=== PATIENT | male | born 1995 | race African-American/Black ===

== ENCOUNTER 2017-07-23 22:28 | Emergency (ER) | payer MEDICAID ==
[2017-07-23 22:55] VITALS: BP 120/55
== END 2017-07-24 | disposition left against medical advice (07) ==
LOC: ER 22:28
DX: Z53.21 Procedure and treatment not carried out due to patient leaving prior to being seen by health care provider (principal)

== ENCOUNTER 2018-11-20 20:25 | Inpatient (IN) | payer MEDICAID ==
[2018-11-20] MEDS ORDERED: IPRATROPIUM/ALBUTEROL 0.5-2.5 MG/3 ML AMPUL NEB ONE (20:56)
--- NOTE | 2018-11-20 20:59 | ER Document Report ---
ED Medical Screen (RME) - General Chief Complaint: Low Back Pain Stated Complaint: LOWER BACK PAIN Time Seen by Provider: 11/20/18 20:49 Mode of Arrival: Ambulatory Information source: Patient Notes: This 23-year-old male presents emergency department with complaints of not feeling good for the last couple days. Reports it started with a sore throat. Now reports his chest his abdomen and bilateral flank pain. Denies pain with void. Mother reports she tried to give him a neb treatment but he declined because his chest hurts so much. Denies fever vomiting diarrhea. Respiratory rate even no retractions unlabored. I have greeted and performed a rapid initial assessment of this patient. A comprehensive ED assessment and evaluation of the patient, analysis of test results and completion of the medical decision making process will be conducted by additional ED providers. Dictation of this chart was performed using voice recognition software; therefore, there may be some unintended grammatical errors. TRAVEL OUTSIDE OF THE [place] IN LAST 30 DAYS: No - Related Data Allergies/Adverse Reactions: Fruit Extracts [From Fruit & Vegetable Daily] Allergy (Severe, Verified 10/25/14 11:08) Lutein Extract [From Fruit & Vegetable Daily] Allergy (Severe, Verified 10/25/14 11:08) lycopene [From Fruit & Vegetable Daily] Allergy (Severe, Verified 10/25/14 11:08) Past Medical History - Social History Chew tobacco use (# tins/day): No Frequency of alcohol use: None Drug Abuse: None Pulmonary Medical History: Reports: Hx Asthma Psychiatric Medical History: Reports: Hx Attention Deficit Hyperactivity Disorder - Immunizations Immunizations up to date: Yes Physical Exam - Vital signs Vitals: Temp Pulse Resp BP Pulse Ox 98.3 F 59 L 18 161/90 H 94 11/20/18 20:37 11/20/18 20:37 11/20/18 20:37 11/20/18 20:37 11/20/18 20:37 Course - Vital Signs Vital signs: Temp Pulse Resp BP Pulse Ox 98.3 F 59 L 18 161/90 H 94 11/20/18 20:37 11/20/18 20:37 11/20/18 20:37 11/20/18 20:37 11/20/18 20:37
[2018-11-20 21:26] LABS: ABSOLUTE EOSINOPHILS # (AUTO) 0.1 10^3/uL (0.0-0.6); ABSOLUTE LYMPHOCYTES (AUTO) 1.3 10^3/uL (0.5-4.7); ABSOLUTE MONOCYTES (AUTO) 0.7 10^3/uL (0.1-1.4); ABSOLUTE NEUT (AUTO) 5.6 10^3/uL (1.7-8.2); BASOPHILS % (AUTO) 0.4 % (0-2); EOSINOPHILS % (AUTO) 1.3 % (0-6); HEMATOCRIT 46.1 % (37.9-51.0); HEMOGLOBIN 15.6 g/dL (13.5-17.0); LYMPHOCYTES % (AUTO) 16.9 % (13-45); MEAN CORPUSCULAR HEMOGLOBIN 25.7 pg (27.0-33.4); MEAN CORPUSCULAR HGB CONC 33.8 g/dL (32.0-36.0); MEAN CORPUSCULAR VOLUME 76 fl (80-97); MONOCYTES % (AUTO) 9.1 % (3-13); PLATELET COUNT 198 10^3/uL (150-450); RED BLOOD COUNT 6.07 10^6/uL (4.35-5.55); RED CELL DISTRIBUTION WIDTH 13.1 % (11.5-14.0); SEGMENTED NEUTROPHILS % (AUTO) 72.3 % (42-78); TOTAL CELLS COUNTED % (AUTO) 100 %; WHITE BLOOD COUNT 7.7 10^3/uL (4.0-10.5)
[2018-11-20 21:28] LABS: APPEARANCE,URINE CLEAR; BILIRUBIN,URINE NEGATIVE (NEGATIVE); COLOR,URINE YELLOW; GLUCOSE, URINE NEGATIVE (NEGATIVE); KETONES,URINE 20 mg/dL (NEGATIVE); LEUKOCYTE ESTERASE,URINE NEGATIVE (NEGATIVE); NITRITE,URINE NEGATIVE (NEGATIVE); PROTEIN,URINE 30 mg/dL (NEGATIVE); URINE SPECIFIC GRAVITY 1.009
[2018-11-20 21:38] LABS: ALBUMIN 4.9 g/dL (3.5-5.0); ALKALINE PHOSPHATASE 74 U/L (38-126); ANION GAP 13 (5-19); ASPARTATE AMINO TRANSFERASE 24 U/L (17-59); BILIRUBIN,DIRECT 0.3 mg/dL (0.0-0.4); BILIRUBIN,TOTAL 0.9 mg/dL (0.2-1.3); BLOOD UREA NITROGEN 20 mg/dL (7-20); CALCIUM 9.9 mg/dL (8.4-10.2); CARBON DIOXIDE 28 mmol/L (22-30); CHLORIDE 100 mmol/L (98-107); GLUCOSE 99 mg/dL (75-110); POTASSIUM 4.1 mmol/L (3.6-5.0); TOTAL PROTEIN 8.2 g/dL (6.3-8.2)
--- NOTE | 2018-11-20 22:11 | RADIOLOGY REPORT (SQ) ---
EXAM DESCRIPTION: XR CHEST 2 VIEWS COMPLETED DATE/TME: 11/20/2018 20:56 CLINICAL HISTORY: 23 years, Male, diff breathing, cp, hx asthma COMPARISON: 10/25/2014 chest NUMBER OF VIEWS: 2 TECHNIQUE: 2 view chest LIMITATIONS: None. FINDINGS: Heart size normal. Lungs clear. No pneumothorax IMPRESSION: Negative chest copyright 2010 [employer]- All Rights Reserved
[2018-11-21] MEDS ORDERED: NORMAL SALINE 1000 ML 1,000 ML IV ONE (00:27)
[2018-11-21 03:17] LABS: CHLAM PCR NOT DETECTED (NOT DETECT)
[2018-11-21] MEDS ORDERED: ONDANSETRON HCL INJ/PF 4 MG/2 ML SDV IV ONE (04:13)
--- NOTE | 2018-11-21 04:19 | ER Document Report ---
ED General - General Chief Complaint: Low Back Pain Stated Complaint: LOWER BACK PAIN Time Seen by Provider: 11/20/18 20:49 Primary Care Provider: CLAUDIA ESPINOZA FNP-C [Primary Care Provider] - Follow up as needed Mode of Arrival: Ambulatory Notes: Patient is a 23-year-old male presents to the emergency department for lower back pain and suprapubic pain for the last 3 days. Patient states he has had 2 episodes of vomiting today is denying any blood in his emesis, has had 2 episodes of vomiting yesterday also denying any blood. Patient's denying any diarrhea or fevers. Is denying dysuria but is complaining of urinary frequency. Patient's denying any penile discharge. Patient initially complained of a sore throat in triage but upon my assessment is denying any sore throat. Patient states he did recently start taking amlodipine for blood pressure approximately 2 weeks ago. Past medical history: ADHD, hypertension, asthma Medications: Amlodipine, albuterol Allergies: No known medical allergies TRAVEL OUTSIDE OF THE [place] IN LAST 30 DAYS: No - Related Data Allergies/Adverse Reactions: Fruit Extracts [From Fruit & Vegetable Daily] Allergy (Severe, Verified 10/25/14 11:08) Lutein Extract [From Fruit & Vegetable Daily] Allergy (Severe, Verified 10/25/14 11:08) lycopene [From Fruit & Vegetable Daily] Allergy (Severe, Verified 10/25/14 11:08) Past Medical History - General Information source: Patient - Social History Smoking Status: Never Smoker Chew tobacco use (# tins/day): No Frequency of alcohol use: None Drug Abuse: None Family History: Reviewed & Not Pertinent Patient has suicidal ideation: No Patient has homicidal ideation: No - Past Medical History Cardiac Medical History: Reports: Hx Hypertension Pulmonary Medical History: Reports: Hx Asthma Psychiatric Medical History: Reports: Hx Attention Deficit Hyperactivity Disorder - Immunizations Immunizations up to date: Yes Review of Systems - Review of Systems Constitutional: denies: Fever EENT: No symptoms reported Cardiovascular: No symptoms reported Respiratory: No symptoms reported Gastrointestinal: See HPI Genitourinary: See HPI Male Genitourinary: See HPI Musculoskeletal: See HPI Skin: No symptoms reported Hematologic/Lymphatic: No symptoms reported Neurological/Psychological: No symptoms reported Physical Exam - Vital signs Vitals: Temp Pulse BP Pulse Ox 98.3 F 67 161/90 H 95 11/20/18 20:36 11/20/18 20:36 11/20/18 20:36 11/20/18 20:36 - Notes Notes: GENERAL: Alert, interacts well. No acute distress. HEAD: Normocephalic, atraumatic. EYES: Pupils equal, round, and reactive to light. Extraocular movements intact. ENT: Oral mucosa moist, tongue midline. NECK: Full range of motion. Supple. Trachea midline. LUNGS: Clear to auscultation bilaterally, no wheezes, rales, or rhonchi. No res piratory distress. HEART: Regular rate and rhythm. No murmur ABDOMEN: Soft, right upper quadrant pain noted, suprapubic pain noted. Non- distended. Bowel sounds present in all 4 quadrants. EXTREMITIES: Moves all 4 extremities spontaneously. No edema, normal radial and dorsalis pedis pulses bilaterally. No cyanosis. BACK: no cervical, thoracic, lumbar midline tenderness. No saddle anesthesia, normal distal neurovascular exam. No CVA tenderness noted bilaterally. NEUROLOGICAL: Alert and oriented x3. Normal speech. cranial nerves II through XII grossly intact PSYCH: Normal affect, normal mood. SKIN: Warm, dry, normal turgor. No rashes or lesions noted. Course - Re-evaluation Re-evalutation: Laboratory 11/20/18 11/20/18 11/20/18 20:58 20:58 20:58 WBC 7.7 RBC 6.07 H Hgb 15.6 Hct 46.1 MCV 76 L MCH 25.7 L MCHC 33.8 RDW 13.1 Plt Count 198 Lymph % (Auto) 16.9 [place] % (Auto) 9.1 Eos % (Auto) 1.3 Baso % (Auto) 0.4 Absolute Neuts (auto) 5.6 Absolute Lymphs (auto) 1.3 Absolute Monos (auto) 0.7 Absolute Eos (auto) 0.1 Absolute Basos (auto) 0.0 Seg Neutrophils % 72.3 Sodium 141.2 Potassium 4.1 Chloride 100 Carbon Dioxide 28 Anion Gap 13 BUN 20 Creatinine 2.55 H Est GFR ( Amer) 39 L Est GFR (MDRD) Non-Af 32 L Glucose 99 Calcium 9.9 Total Bilirubin 0.9 Direct Bilirubin 0.3 Neonat Total Bilirubin Not Reportable Neonat Direct Bilirubin Not Reportable Neonat Indirect Bili Not Reportable AST 24 ALT 24 Alkaline Phosphatase 74 Creatine Kinase Total Protein 8.2 Albumin 4.9 Urine Color YELLOW Urine Appearance CLEAR Urine pH 6.0 Ur Specific [place] 1.009 Urine Protein 30 H Urine Glucose (UA) NEGATIVE Urine Ketones 20 H Urine Blood SMALL H Urine Nitrite NEGATIVE Urine Bilirubin NEGATIVE Urine Urobilinogen 2.0 H Ur Leukocyte Esterase NEGATIVE Urine WBC (Auto) 1 Urine RBC (Auto) 0 Squamous Epi Cells Auto <1 Urine Mucus (Auto) RARE Urine Ascorbic Acid NEGATIVE Chlamydia DNA (PCR) N.gonorrhoeae DNA (PCR) Group A Strep Rapid 11/20/18 11/21/18 11/21/18 20:58 00:00 01:39 WBC RBC Hgb Hct MCV MCH MCHC RDW Plt Count Lymph % (Auto) [place] % (Auto) Eos % (Auto) Baso % (Auto) Absolute Neuts (auto) Absolute Lymphs (auto) Absolute Monos (auto) Absolute Eos (auto) Absolute Basos (auto) Seg Neutrophils % Sodium Potassium Chloride Carbon Dioxide Anion Gap BUN Creatinine Est GFR ( Amer) Est GFR (MDRD) Non-Af Glucose Calcium Total Bilirubin Direct Bilirubin Neonat Total Bilirubin Neonat Direct Bilirubin Neonat Indirect Bili AST ALT Alkaline Phosphatase Creatine Kinase 94 Total Protein Albumin Urine Color Urine Appearance Urine pH Ur Specific [place] Urine Protein Urine Glucose (UA) Urine Ketones Urine Blood Urine Nitrite Urine Bilirubin Urine Urobilinogen Ur Leukocyte Esterase Urine WBC (Auto) Urine RBC (Auto) Squamous Epi Cells Auto Urine Mucus (Auto) Urine Ascorbic Acid Chlamydia DNA (PCR) NOT DETECTED N.gonorrhoeae DNA (PCR) NOT DETECTED Group A Strep Rapid NEGATIVE In reviewing this case with my attending Dr. Alonzo, he is suggesting transfer of the pt. in order to have nephrology consult. 11/21/18 04:14 I have paged [facility] for attempted transfer due to [facility] not having nephrology on-call. Spoke with Dr. Modi at [facility] who is requesting that I speak with nephrology secondary spanish teacher prior to possible transfer. Transfer center stated they will page nephrology. I spoke with Dr. Mcallister, nephrology at [facility] who states this should be a medical admit and thinks I should try [facility] for admission. 11/21/18 04:43 I have spoken with Dr. Gordon, hospitalist at [facility]. He is requesting a CT abdomen pelvis without contrast. States to call him back with results prior to potential admission. 11/21/18 07:52 I have discussed this case with Casper Hart PA-c who will admit to a medical bed for care of pts elevated creatinine. - Vital Signs Vital signs: Temp Pulse Resp BP Pulse Ox 98.3 F 61 18 140/72 H 98 11/21/18 06:50 11/21/18 06:50 11/21/18 06:50 11/21/18 06:50 11/21/18 06:50 - Laboratory Result Diagrams: 11/20/18 20:58 11/20/18 20:58 Laboratory results interpreted by me: 11/20/18 11/20/18 11/20/18 20:58 20:58 20:58 RBC 6.07 H MCV 76 L MCH 25.7 L Creatinine 2.55 H Est GFR ( Amer) 39 L Est GFR (MDRD) Non-Af 32 L Urine Protein 30 H Urine Ketones 20 H Urine Blood SMALL H Urine Urobilinogen 2.0 H Discharge - Discharge Clinical Impression: Elevated serum creatinine, Suprapubic pain Vomiting Qualifiers: Vomiting type: unspecified Vomiting Intractability: non-intractable Nausea presence: with nausea Qualified Code(s): R11.2 - Nausea with vomiting, unspecified Lower back pain Qualifiers: Chronicity: acute Back pain laterality: bilateral Sciatica presence: without sc iatica Qualified Code(s): M54.5 - Low back pain Condition: Stable Disposition: ADMITTED INPATIENT Admitting Provider: Casper Hart PA-C Unit Admitted: Medical Floor Referrals: CLAUDIA ESPINOZA FNP-C [Primary Care Provider] - Follow up as needed
--- NOTE | 2018-11-21 04:48 | RADIOLOGY REPORT (SQ) ---
EXAM DESCRIPTION: [facility]: US ABDOMEN LIMITED CLINICAL HISTORY: 23 years Male; RUQ pain TECHNIQUE: Right upper quadrant ultrasound was performed. COMPARISON: None. FINDINGS: Pancreas: Visualized portions are unremarkable. Liver: 13.9 cm long Portal venous flow is hepatopedal, normal. Gallbladder: normal with no gallstones or sonographic evidence for acute cholecystitis. No pericholecystic fluid. No sonographic Pink's sign. Common bile duct: 6 mm. Right kidney: 11.4 x 6.8 x 6.3 cm, slightly echogenic parenchyma. No shadowing calculi. No hydronephrosis. IMPRESSION: 1. Bile duct is at the upper limits of normal in size. However, the gallbladder is normal. 2. Slightly echogenic right renal parenchyma. This is a nonspecific finding that can be seen with medical renal disease. No hydronephrosis.
--- NOTE | 2018-11-21 06:14 | RADIOLOGY REPORT (SQ) ---
CLINICAL HISTORY: lower abd pain COMPARISON: None. TECHNIQUE: CT ABDOMEN PELVIS WITHOUT IV CONTRAST on 11/21/2018 4:42 AM CDT This exam was performed according to our departmental dose-optimization program, which includes automated exposure control, adjustment of the mA and/or kV according to patient size and/or use of iterative reconstruction technique. FINDINGS: Lower lungs are clear. Abdomen: The liver is normal in appearance. There is no biliary dilatation. Gallbladder is normal in appearance. The pancreas and spleen are normal in appearance. The adrenal glands and kidneys are unremarkable. Abdominal aorta is normal in course and caliber without aneurysm. There is no free air. There is no retroperitoneal adenopathy. Pelvis: There is no bowel obstruction. Urinary bladder is unremarkable. There is no free fluid. Appendix is normal. Skeleton: There are no acute osseous findings. No suspicious bony lesions. IMPRESSION: No acute inflammatory process. No renal or ureteral calculi.
--- NOTE | 2018-11-21 06:16 | RADIOLOGY REPORT (SQ) ---
EXAM: US RENAL CLINICAL DATA: 23-year-old male with lower abdominal pain TECHNICAL DATA: Grayscale and Doppler ultrasound imaging of the kidneys and bladder was performed on 11/21/2018 at 4:33 AM. Comparison: Prior abdominal ultrasound performed on 11/21/2018 at 2:55 AM. FINDINGS: The right kidney measures 11.4 x 6.3 x 6.8 cm. The renal cortex is normal. There is no evidence of renal mass, calculi or perinephric fluid collection. There is no pelvocaliectasis. The left kidney measures 11.3 x 6.2 x 7.4 cm. The renal cortex is normal. There is no evidence of renal mass, calculi or perinephric fluid collection. There is no pelvocaliectasis. The bladder is well distended and smooth in contour. The prevoid bladder volume measures 206 mL. Bilateral ureteral jets are identified. IMPRESSION: Grossly normal sonographic evaluation of the kidneys and bladder.
[2018-11-21] MEDS ORDERED: ONDANSETRON 4 MG TAB.RAPDIS PO PRN (08:49)
[2018-11-21] MEDS ORDERED: ACETAMINOPHEN 325 MG TABLET PO PRN (08:49)
[2018-11-21] MEDS ORDERED: ONDANSETRON HCL INJ/PF 4 MG/2 ML SDV IV PRN (08:49)
[2018-11-21] MEDS ORDERED: KETOROLAC TROMETHAMINE INJ/PF 30 MG/1 ML SDV IV PRN (09:02)
--- NOTE | 2018-11-21 09:18 | PDOC H&P ---
History of Present Illness Admission Date/PCP: 11/21/18 08:02 TARUN BARR History of Present Illness: DONA BULL is a 23 year old black male who comes in with a 5-day history of lower abdominal pain and flank pain. Patient states on Thursday he started having some pain just below his umbilicus and in both of his sides or flanks. Patient states he took some Benadryl and clonidine to see if it would help. I asked him why he had clonidine and he said he had been prescribed it in the past for sleep.. I wonder if he means Klonopin. At any rate it did not seem to get any better he says that he has more abdominal pain when his bladder fills up or when he needs to void. No actual dysuria with voiding and he denies fever chills or sweats although he says he has had a cold recently. States that he is vomited once yesterday and vomited once a day before. Patient denies diarrhea. Patient also states that 2 weeks ago he went to his primary care provider for his prescription for Adderall and at that time she noticed his blood pressure was elevated he says that she did some blood work and started him on a blood pressure medicine Norvasc.. Patient states he is never been told he had hypertension in the past and never been on blood pressure medicine before.. P atient also denies any other comorbidities such as diabetes or heart disease or renal disease or HIV. Only other problem is ADD. The emergency room patient has had several studies and so far the only thing that has shown up abnormal is a creatinine of 2.55 with a normal BUN of 20 GFR of 39. This would calculate to a creatinine clearance of approximately 56. Patient will be admitted to the hospital for further work-up and possible nephrology consult. The last creatinine that I can find in the records is 2014 which was 1.02, certainly however the blood work from 2 weeks ago would be helpful Past Medical History Cardiac Medical History: Reports: Hypertension Pulmonary Medical History: Reports: Asthma Psychiatric Medical History: Reports: Attention Deficit Hyperactivity Disorder Social History Smoking Status: Never Smoker - Advance Directive Resuscitation Status: Full Code Family History Family History: Reviewed & Not Pertinent Parental Family History Reviewed: No Children Family History Reviewed: No Sibling(s) Family History Reviewed.: No Medication/Allergy Home Medications: Amlodipine Besylate [Norvasc 5 mg Tablet] 5 mg PO DAILY 11/21/18 Atomoxetine HCl 80 mg PO DAILY 11/21/18 Clonidine HCl [Catapres 0.1 mg Tablet] 0.1 mg PO QHS 11/21/18 Allergies/Adverse Reactions: Fruit Extracts [From Fruit & Vegetable Daily] Allergy (Severe, Verified 10/25/14 11:08) Lutein Extract [From Fruit & Vegetable Daily] Allergy (Severe, Verified 10/25/14 11:08) lycopene [From Fruit & Vegetable Daily] Allergy (Severe, Verified 10/25/14 11:08) Review of Systems Constitutional: ABSENT: chills, fever(s), headache(s), weight gain, weight loss Cardiovascular: ABSENT: chest pain, dyspnea on exertion, edema, orthropnea, palpitations Respiratory: ABSENT: cough, hemoptysis Gastrointestinal: PRESENT: nausea, vomiting Neurological: ABSENT: abnormal gait, abnormal speech, confusion, dizziness, focal weakness, syncope Psychiatric: ABSENT: anxiety, depression, homidical ideation, suicidal ideation Physical Exam Vital Signs: Temp Pulse Resp BP Pulse Ox 98.3 F 63 16 140/73 H 99 11/21/18 06:50 11/21/18 08:45 11/21/18 08:45 11/21/18 08:45 11/21/18 08:45 Intake & Output 11/20/18 11/21/18 11/22/18 06:59 06:59 06:59 Intake Total 1000 Balance 1000 Weight 86.8 kg General appearance: PRESENT: no acute distress, well-developed, well-nourished Respiratory exam: PRESENT: clear to auscultation parag. ABSENT: rales, rhonchi, wheezes Cardiovascular exam: PRESENT: RRR. ABSENT: diastolic murmur, rubs, systolic murmur GI/Abdominal exam: PRESENT: soft, tenderness - Generalized however patient reports more more pain with suprapubic palpation Neurological exam: PRESENT: alert, awake, oriented to person, oriented to place, oriented to time, oriented to situation, CN II-XII grossly intact. ABSENT: motor sensory deficit Psychiatric exam: PRESENT: flat affect Results Laboratory Results: 11/20/18 20:58 11/20/18 20:58 11/20/18 11/20/18 11/20/18 20:58 20:58 20:58 WBC 7.7 RBC 6.07 H Hgb 15.6 Hct 46.1 MCV 76 L MCH 25.7 L MCHC 33.8 RDW 13.1 Plt Count 198 Seg Neutrophils % 72.3 Sodium 141.2 Potassium 4.1 Chloride 100 Carbon Dioxide 28 Anion Gap 13 BUN 20 Creatinine 2.55 H Est GFR ( Amer) 39 L Glucose 99 Calcium 9.9 Total Bilirubin 0.9 AST 24 Alkaline Phosphatase 74 Total Protein 8.2 Albumin 4.9 Urine Color YELLOW Urine Appearance CLEAR Urine pH 6.0 Ur Specific [place] 1.009 Urine Protein 30 H Urine Glucose (UA) NEGATIVE Urine Ketones 20 H Urine Blood SMALL H Urine Nitrite NEGATIVE Ur Leukocyte Esterase NEGATIVE Urine WBC (Auto) 1 Urine RBC (Auto) 0 11/21/18 00:00 Creatine Kinase 94 Impressions: Chest X-Ray 11/20/18 20:56 IMPRESSION: Negative chest copyright 2011 [employer]- All Rights Reserved Abdomen Ultrasound 11/21/18 01:33 IMPRESSION: 1. Bile duct is at the upper limits of normal in size. However, the gallbladder is normal. 2. Slightly echogenic right renal parenchyma. This is a nonspecific finding that can be seen with medical renal disease. No hydronephrosis. Renal Ultrasound 11/21/18 04:08 IMPRESSION: Grossly normal sonographic evaluation of the kidneys and bladder. Abdomen/Pelvis CT 11/21/18 04:42 IMPRESSION: No acute inflammatory process. No renal or ureteral calculi. Assessment and Plan - Diagnosis (1) Hypertension Is this a current diagnosis for this admission?: Yes Plan: She will be treated with his normal Norvasc which was started 2 weeks ago, I believe 5 mg a day (2) ADD (attention deficit disorder) Is this a current diagnosis for this admission?: Yes Plan: Patient is on Atomoxetine 2 mg daily for his ADD (3) Elevated serum creatinine Is this a current diagnosis for this admission?: Yes Plan: Patient will be hydrated today possibly consult nephrology tomorrow patient had 1 L of fluid in the ER (4) Lower back pain Qualifiers: Chronicity: acute Back pain laterality: bilateral Sciatica presence: without sciatica Qualified Code(s): M54.5 - Low back pain Is this a current diagnosis for this admission?: Yes Plan: Patient is tender to palpate over both flanks but not over the midline or the spine (5) Suprapubic pain Is this a current diagnosis for this admission?: Yes Plan: We will recheck labs to keep patient on a full liquid diet - Time Time Spent with patient: 35 or more minutes
[2018-11-21] MEDS: OXYCODONE-ACETAMINOPHEN 5-325 MG TABLET PO PRN ×2 (10:13→19:50)
[2018-11-21] MEDS: NORMAL SALINE 1000 ML 1,000 ML IV PRN ×2 (10:14→15:53)
[2018-11-21] MEDS: FAMOTIDINE 20 MG TABLET PO SCH ×2 (10:14→21:16)
[2018-11-21] MEDS: DOCUSATE SODIUM 100 MG CAPSULE PO SCH (10:14)
[2018-11-21] MEDS: HEPARIN SOD (PORCINE) 5,000 UNIT/ML 1 ML VIAL SUBCUT SCH ×2 (13:27→21:14)
[2018-11-22] MEDS: NORMAL SALINE 1000 ML 1,000 ML IV PRN ×3 (00:01→19:58)
[2018-11-22 04:46] LABS: ABSOLUTE EOSINOPHILS # (AUTO) 0.1 10^3/uL (0.0-0.6); ABSOLUTE LYMPHOCYTES (AUTO) 1.4 10^3/uL (0.5-4.7); ABSOLUTE MONOCYTES (AUTO) 0.7 10^3/uL (0.1-1.4); ABSOLUTE NEUT (AUTO) 4.6 10^3/uL (1.7-8.2); BASOPHILS % (AUTO) 0.4 % (0-2); EOSINOPHILS % (AUTO) 2.2 % (0-6); HEMATOCRIT 43.8 % (37.9-51.0); MEAN CORPUSCULAR HEMOGLOBIN 25.9 pg (27.0-33.4); MEAN CORPUSCULAR HGB CONC 34.3 g/dL (32.0-36.0); MEAN CORPUSCULAR VOLUME 76 fl (80-97); MONOCYTES % (AUTO) 10.5 % (3-13); PLATELET COUNT 180 10^3/uL (150-450); RED BLOOD COUNT 5.81 10^6/uL (4.35-5.55); SEGMENTED NEUTROPHILS % (AUTO) 66.9 % (42-78); TOTAL CELLS COUNTED % (AUTO) 100 %; WHITE BLOOD COUNT 6.9 10^3/uL (4.0-10.5)
[2018-11-22 05:08] LABS: ALBUMIN 3.9 g/dL (3.5-5.0); ALKALINE PHOSPHATASE 61 U/L (38-126); ANION GAP 10 (5-19); ASPARTATE AMINO TRANSFERASE 18 U/L (17-59); BILIRUBIN,DIRECT 0.2 mg/dL (0.0-0.4); BILIRUBIN,TOTAL 0.8 mg/dL (0.2-1.3); BLOOD UREA NITROGEN 14 mg/dL (7-20); CALCIUM 9.1 mg/dL (8.4-10.2); CARBON DIOXIDE 29 mmol/L (22-30); CHLORIDE 106 mmol/L (98-107); GLUCOSE 95 mg/dL (75-110); PHOSPHORUS 4.2 mg/dL (2.5-4.5); POTASSIUM 4.4 mmol/L (3.6-5.0); TOTAL PROTEIN 6.9 g/dL (6.3-8.2)
[2018-11-22] MEDS: HEPARIN SOD (PORCINE) 5,000 UNIT/ML 1 ML VIAL SUBCUT SCH ×3 (05:22→21:03)
[2018-11-22] MEDS ORDERED: FLUTICASONE NASAL SPRAY 50 MCG/SPRY 120 SPRAY/16 GM NASL PRN (07:39)
[2018-11-22] MEDS: FAMOTIDINE 20 MG TABLET PO SCH ×2 (11:00→21:21)
[2018-11-22] MEDS: DOCUSATE SODIUM 100 MG CAPSULE PO SCH (11:00)
--- NOTE | 2018-11-22 15:21 | PDOC PROGRESS REPORT ---
Subjective Progress Note for:: 11/22/18 Subjective:: She was admitted to the hospital on 922 with a 5-day history of abdominal pain and flank pain. Emerged from provider was concerned that his BUN was 20 and his creatinine was 2.55. ER provider was concerned that this may be the cause of his pain. Reason For Visit: ABDOMINAL PAIN, LOW BACK PAIN, DISEASE, Physical Exam Vital Signs: Temp Pulse Resp BP Pulse Ox 98.3 F 52 L 16 142/85 H 98 11/22/18 07:59 11/22/18 07:59 11/22/18 07:59 11/22/18 07:59 11/22/18 07:59 Intake & Output 11/21/18 11/22/18 11/23/18 06:59 06:59 06:59 Intake Total 1000 4338 240 Output Total 260 1940 Balance 1000 4078 -1700 Weight 86.8 kg 86.8 kg General appearance: PRESENT: no acute distress Respiratory exam: PRESENT: clear to auscultation parag. ABSENT: rales, rhonchi, wheezes Cardiovascular exam: PRESENT: RRR. ABSENT: diastolic murmur, rubs, systolic murmur GI/Abdominal exam: PRESENT: tenderness - Suprapubic region and both flanks Neurological exam: PRESENT: alert, awake, oriented to person, oriented to place, oriented to time, oriented to situation, CN II-XII grossly intact. ABSENT: motor sensory deficit Psychiatric exam: PRESENT: appropriate affect, normal mood. ABSENT: homicidal ideation, suicidal ideation Results Laboratory Results: 11/22/18 04:18 11/22/18 04:18 11/22/18 11/22/18 04:18 04:18 WBC 6.9 RBC 5.81 H Hgb 15.0 Hct 43.8 MCV 76 L MCH 25.9 L MCHC 34.3 RDW 13.0 Plt Count 180 Seg Neutrophils % 66.9 Sodium 144.6 Potassium 4.4 Chloride 106 Carbon Dioxide 29 Anion Gap 10 BUN 14 Creatinine 2.26 H Est GFR ( Amer) 45 L Glucose 95 Calcium 9.1 Phosphorus 4.2 Magnesium 2.2 Total Bilirubin 0.8 AST 18 Alkaline Phosphatase 61 Total Protein 6.9 Albumin 3.9 11/20/18 21:30 Throat Throat Culture - Final NORMAL ELIECER 11/21/18 11/21/18 00:00 11:58 Creatine Kinase 94 91 Impressions: Chest X-Ray 11/20/18 20:56 IMPRESSION: Negative chest copyright 2010 [employer]- All Rights Reserved Abdomen Ultrasound 11/21/18 01:33 IMPRESSION: 1. Bile duct is at the upper limits of normal in size. However, the gallbladder is normal. 2. Slightly echogenic right renal parenchyma. This is a nonspecific finding that can be seen with medical renal disease. No hydronephrosis. Renal Ultrasound 11/21/18 04:08 IMPRESSION: Grossly normal sonographic evaluation of the kidneys and bladder. Abdomen/Pelvis CT 11/21/18 04:42 IMPRESSION: No acute inflammatory process. No renal or ureteral calculi. Assessment and Plan - Diagnosis (1) Hypertension Is this a current diagnosis for this admission?: Yes Plan: he will be treated with his normal Norvasc which was started 2 weeks ago, I believe 5 mg a day [id number] patient blood pressures are stable slightly improved from the ER most recent today 142/85 earlier was 142/88 (2) ADD (attention deficit disorder) Is this a current diagnosis for this admission?: Yes Plan: Patient is on Atomoxetine 2 mg daily for his ADD 11/22/2018 patient is having no difficulty with his ADD (3) Elevated serum creatinine Is this a current diagnosis for this admission?: Yes Plan: Patient will be hydrated today possibly consult nephrology tomorrow patient had 1 L of fluid in the ER Patient's serum creatinine today is 2.26 and on admission was 2.55. Urine today of 14 and on admission was 20 GFR today is up to 45 and on admission was 39 Patient is receiving normal saline at 200 mL's per hour this was discontinued several hours ago Awaiting nephrology consult (4) Lower back pain Qualifiers: Chronicity: acute Back pain laterality: bilateral Sciatica presence: without sciatica Qualified Code(s): M54.5 - Low back pain Is this a current diagnosis for this admission?: Yes Plan: Patient is tender to palpate over both flanks but not over the midline or the spine 11/22/2018 patient still complains of flank pain both sides (5) Suprapubic pain Is this a current diagnosis for this admission?: Yes Plan: We will recheck labs to keep patient on a full liquid diet 11/22/2018 patient still complained of suprapubic pain but no nausea no vomiting Patient has had abdominal ultrasound showed slightly echogenic right renal parenchyma and no hydronephrosis Patient has had a renal ultrasound which shows grossly normal sonogram evaluation of the kidneys and bladder Patient has had a CT of the abdomen and pelvis without contrast which shows no acute inflammatory process no renal or ureteral calculi - Time Time Spent with patient: 25-34 minutes
[2018-11-22] MEDS ORDERED: CYCLOBENZAPRINE HCL 10 MG TABLET PO PRN (17:50)
--- NOTE | 2018-11-22 17:56 | Progress Note ---
Provider Note Provider Note: I talked to the invoice classification clerk Dr. Ramey, suggested several things, #1 constipation possibility #2 nonsteroidal anti-inflammatory drugs #3 substance abuse #4 hydration. Patient states that he had a bowel movement today though it was diarrhea, patient denies frequent use of nonsteroidal anti-inflammatory drugs. Patient denies illegal drug abuse I am going to get a KUB of the abdomen. This film will need to be reviewed tomorrow. DC his Percocet. Start him on Flexeril. States his abdominal pain is much better but he still has back pain and this sounds to be more muscular, and may be chronic in nature. Patient is improving with hydration. Dr. Ramey be glad to see him as an outpatient although it may be that the patient needs to return back to his primary care provider who started him on Norvasc 2 weeks ago initially.
[2018-11-23] MEDS: HEPARIN SOD (PORCINE) 5,000 UNIT/ML 1 ML VIAL SUBCUT SCH ×3 (05:20→21:53)
[2018-11-23] MEDS: NORMAL SALINE 1000 ML 1,000 ML IV PRN ×3 (06:22→20:29)
--- NOTE | 2018-11-23 08:49 | RADIOLOGY REPORT (SQ) ---
EXAM DESCRIPTION: KUB/ABDOMEN (SINGLE VIEW) COMPLETED DATE/TIME: 11/22/2018 8:07 pm REASON FOR STUDY: abd pain COMPARISON: None. NUMBER OF VIEWS: One view. TECHNIQUE: Supine radiographic image of the abdomen acquired. LIMITATIONS: None. FINDINGS: BOWEL GAS PATTERN: Nonobstructive bowel gas pattern. There is a mild colonic stool burden . CALCIFICATIONS: None. SOFT TISSUES: No abnormality. HARDWARE: None in the abdomen. BONES: There are 6 lumbar-type vertebral bodies and 12 rib-bearing thoracic vertebral bodies; therefo re for the purposes of enumeration the S1 vertebral body is considered transitional. 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 OTHER: No other finding. IMPRESSION: Nonobstructive bowel gas pattern with a mild colonic stool burden. TECHNICAL DOCUMENTATION: JOB ID: [id number] [employer]- All Rights Reserved Reading location - IP/workstation name: [email or web address]
[2018-11-23] MEDS: DOCUSATE SODIUM 100 MG CAPSULE PO SCH (10:08)
[2018-11-23] MEDS: FAMOTIDINE 20 MG TABLET PO SCH ×2 (10:09→21:53)
[2018-11-23 10:47] LABS: ALBUMIN 4.1 g/dL (3.5-5.0); ALKALINE PHOSPHATASE 62 U/L (38-126); ANION GAP 11 (5-19); ASPARTATE AMINO TRANSFERASE 16 U/L (17-59); BILIRUBIN,DIRECT 0.2 mg/dL (0.0-0.4); BILIRUBIN,TOTAL 0.5 mg/dL (0.2-1.3); BLOOD UREA NITROGEN 8 mg/dL (7-20); CALCIUM 9.4 mg/dL (8.4-10.2); CARBON DIOXIDE 30 mmol/L (22-30); CHLORIDE 104 mmol/L (98-107); GLUCOSE 91 mg/dL (75-110); POTASSIUM 4.4 mmol/L (3.6-5.0); TOTAL PROTEIN 7.1 g/dL (6.3-8.2)
[2018-11-23] MEDS ORDERED: CLONIDINE HCL 0.1 MG TABLET PO SCH (14:15)
--- NOTE | 2018-11-23 15:04 | PDOC PROGRESS REPORT ---
Subjective Progress Note for:: 11/23/18 Subjective:: 11/23/2018. No acute events overnight. Pain is improving, patient is p.o. tolerant, having normal bowel and bladder movements, denies any nausea, vomiting, diarrhea, constipation or any urinary symptoms. Reason For Visit: ABDOMINAL PAIN, LOW BACK PAIN, DISEASE, Physical Exam Vital Signs: Temp Pulse Resp BP Pulse Ox 98.7 F 57 L 16 133/76 H 98 11/23/18 12:04 11/23/18 12:04 11/23/18 12:04 11/23/18 12:04 11/23/18 12:04 Intake & Output 11/22/18 11/23/18 11/24/18 06:59 06:59 06:59 Intake Total 4338 2740 1000 Output Total 260 1940 Balance 4078 800 1000 Weight 86.8 kg 75.2 kg Results Laboratory Results: 11/22/18 04:18 11/23/18 09:57 11/23/18 09:57 Sodium 144.7 Potassium 4.4 Chloride 104 Carbon Dioxide 30 Anion Gap 11 BUN 8 Creatinine 1.88 H Est GFR ( Amer) 55 L Glucose 91 Calcium 9.4 Magnesium 2.1 Total Bilirubin 0.5 AST 16 L Alkaline Phosphatase 62 Total Protein 7.1 Albumin 4.1 11/21/18 11/21/18 00:00 11:58 Creatine Kinase 94 91 Impressions: Chest X-Ray 11/20/18 20:56 IMPRESSION: Negative chest copyright 2011 [employer]- All Rights Reserved Abdomen Ultrasound 11/21/18 01:33 IMPRESSION: 1. Bile duct is at the upper limits of normal in size. However, the gallbladder is normal. 2. Slightly echogenic right renal parenchyma. This is a nonspecific finding that can be seen with medical renal disease. No hydronephrosis. Renal Ultrasound 11/21/18 04:08 IMPRESSION: Grossly normal sonographic evaluation of the kidneys and bladder. Abdomen/Pelvis CT 11/21/18 04:42 IMPRESSION: No acute inflammatory process. No renal or ureteral calculi. KUB X-Ray 11/22/18 00:00 IMPRESSION: Nonobstructive bowel gas pattern with a mild colonic stool burden. Assessment and Plan - Diagnosis (1) Hypertensive emergency Is this a current diagnosis for this admission?: Yes Plan: Rebound hypertension called by clonidine nonadherence. Patient is on clonidine and Norvasc for hypertension but he admits to taking them intermittently only. Presented to ED with systolic blood pressure of 160s, and creatinine of 2.55 up from his baseline of 1.02. SBP [id number]. Creatinine 1.88. We will order an EKG. Continue monitoring, restart Norvasc at 5 mg p.o. once daily. Not a good candidate for clonidine due to nonadherence and risk of rebound hypertension. Not a a good candidate for beta-blockers for asymptomatic bradycardia. He could be sent on hydralazine due to the fact that it is the 3 times daily medication he may not be compliant with it. He could be started on hydrochlorothiazide or chlorthalidone at a later date once his JENNIFER has resolved. Follow up with PCP and nephrology as outpatient. (2) JENNIFER (acute kidney injury) Is this a current diagnosis for this admission?: Yes Plan: Most likely due to rebound hypertension caused by clonidine nonadherence. Creatinine 2.88 on admission, 1.8 today. Making adequate urine. Renal ultrasound negative for any acute abnormalities. Cautious diuresis guided by volume status and renal function. Patient advised on medication adherence. Avoid nephrotoxic meds. Outpatient nephrology follow-up. (3) ADD (attention deficit disorder) Is this a current diagnosis for this admission?: Yes Plan: Patient is on Atomoxetine 2 mg daily for his ADD. Current treatment. Outpatient PCP follow-up. (4) Suprapubic pain Is this a current diagnosis for this admission?: Yes Plan: Improving. P.o. tolerant, having normal bowel and bladder movements. Abdominal ultrasound slightly echogenic right renal parenchyma and no hydronephrosis Renal ultrasound shows grossly normal sonogram evaluation of the kidneys and bladder Abdominal/pelvis CT shows no acute inflammatory process no renal or ureteral calculi
[2018-11-23] MEDS ORDERED: HYDRALAZINE HCL INJ/PF 20 MG/1 ML SDV IV PRN (15:29)
[2018-11-23] MEDS ORDERED: AMLODIPINE BESYLATE 5 MG TABLET PO SCH (15:30)
[2018-11-24] MEDS: NORMAL SALINE 1000 ML 1,000 ML IV PRN ×3 (03:31→18:39)
[2018-11-24] MEDS: HEPARIN SOD (PORCINE) 5,000 UNIT/ML 1 ML VIAL SUBCUT SCH ×3 (05:13→21:24)
[2018-11-24 07:07] LABS: ALBUMIN 3.7 g/dL (3.5-5.0); ALKALINE PHOSPHATASE 55 U/L (38-126); ANION GAP 9 (5-19); ASPARTATE AMINO TRANSFERASE 14 U/L (17-59); BILIRUBIN,DIRECT 0.2 mg/dL (0.0-0.4); BILIRUBIN,TOTAL 0.6 mg/dL (0.2-1.3); BLOOD UREA NITROGEN 6 mg/dL (7-20); CALCIUM 8.9 mg/dL (8.4-10.2); CARBON DIOXIDE 31 mmol/L (22-30); CHLORIDE 103 mmol/L (98-107); GLUCOSE 100 mg/dL (75-110); POTASSIUM 3.9 mmol/L (3.6-5.0); TOTAL PROTEIN 6.6 g/dL (6.3-8.2)
[2018-11-24] MEDS: DOCUSATE SODIUM 100 MG CAPSULE PO SCH (09:27)
[2018-11-24] MEDS: FAMOTIDINE 20 MG TABLET PO SCH ×2 (09:27→21:24)
--- NOTE | 2018-11-24 09:49 | PDOC PROGRESS REPORT ---
Subjective Progress Note for:: 11/24/18 Subjective:: 11/23/2018. No acute events overnight. Pain is improving, patient is p.o. tolerant, having normal bowel and bladder movements, denies any nausea, vomiting, diarrhea, constipation or any urinary symptoms. 11/24/2018. No acute events overnight. Suprapubic abdominal pain improving, having normal bowel and bladder movement, p.o. tolerant however complaining of low appetite, denies any nausea, vomiting, diarrhea, constipation or any urinary symptoms. Kidney function improving, electrolytes WNL. BP not optimized. Reason For Visit: ABDOMINAL PAIN, LOW BACK PAIN, DISEASE, Physical Exam Vital Signs: Temp Pulse Resp BP Pulse Ox 98.8 F 57 L 18 140/83 H 100 11/24/18 07:40 11/24/18 07:40 11/24/18 07:40 11/24/18 07:40 11/24/18 07:40 Intake & Output 11/23/18 11/24/18 11/25/18 06:59 06:59 06:59 Intake Total 2740 3450 897 Output Total 1940 1635 Balance 800 1815 897 Weight 75.2 kg 77.9 kg General appearance: PRESENT: no acute distress, well-developed, well-nourished Head exam: PRESENT: atraumatic, normocephalic Eye exam: PRESENT: conjunctiva pink, EOMI, PERRLA. ABSENT: scleral icterus Ear exam: PRESENT: normal external ear exam Mouth exam: PRESENT: moist, tongue midline Neck exam: ABSENT: carotid bruit, JVD, lymphadenopathy, thyromegaly Respiratory exam: PRESENT: clear to auscultation parag. ABSENT: rales, rhonchi, wheezes Cardiovascular exam: PRESENT: RRR. ABSENT: diastolic murmur, rubs, systolic murmur Pulses: PRESENT: normal dorsalis pedis pul Vascular exam: PRESENT: normal capillary refill GI/Abdominal exam: PRESENT: normal bowel sounds, soft. ABSENT: distended, guarding, mass, organolmegaly, rebound, tenderness Rectal exam: PRESENT: deferred Extremities exam: PRESENT: full ROM. ABSENT: calf tenderness, clubbing, pedal edema Neurological exam: PRESENT: alert, awake, oriented to person, oriented to place, oriented to time, oriented to situation, CN II-XII grossly intact. ABSENT: motor sensory deficit Psychiatric exam: PRESENT: appropriate affect, normal mood. ABSENT: homicidal ideation, suicidal ideation Skin exam: PRESENT: dry, intact, warm. ABSENT: cyanosis, rash Results Laboratory Results: 11/22/18 04:18 11/24/18 06:36 11/23/18 11/23/18 11/24/18 09:57 09:57 06:36 Sodium 144.7 142.6 Potassium 4.4 3.9 Chloride 104 103 Carbon Dioxide 30 31 H Anion Gap 11 9 BUN 8 6 L Creatinine 1.88 H 1.63 H Est GFR ( Amer) 55 L > 60 Glucose 91 100 Calcium 9.4 8.9 Magnesium 2.1 Total Bilirubin 0.5 0.6 AST 16 L 14 L Alkaline Phosphatase 62 55 Total Protein 7.1 6.6 Albumin 4.1 3.7 TSH 1.46 11/21/18 11/21/18 00:00 11:58 Creatine Kinase 94 91 Impressions: Chest X-Ray 11/20/18 20:56 IMPRESSION: Negative chest copyright 2011 [employer]- All Rights Reserved Abdomen Ultrasound 11/21/18 01:33 IMPRESSION: 1. Bile duct is at the upper limits of normal in size. However, the gallbladder is normal. 2. Slightly echogenic right renal parenchyma. This is a nonspecific finding that can be seen with medical renal disease. No hydronephrosis. Renal Ultrasound 11/21/18 04:08 IMPRESSION: Grossly normal sonographic evaluation of the kidneys and bladder. Abdomen/Pelvis CT 11/21/18 04:42 IMPRESSION: No acute inflammatory process. No renal or ureteral calculi. KUB X-Ray 11/22/18 00:00 IMPRESSION: Nonobstructive bowel gas pattern with a mild colonic stool burden. Assessment and Plan - Diagnosis (1) Hypertensive emergency Is this a current diagnosis for this admission?: Yes Plan: Rebound hypertension called by clonidine nonadherence. Patient is on clonidine and Norvasc for hypertension but he admits to taking them intermittently only. Presented to ED with systolic blood pressure of 160s, and creatinine of 2.55 up from his baseline of 1.02. SBP [id number]. Creatinine 1.6 EKG positive for left ventricular hypertrophy. Continue monitoring, restart Norvasc at 5 mg p.o. once daily. Not a good candidate for clonidine due to nonadherence and risk of rebound hypertension. Not a a good candidate for beta-blockers for asymptomatic bradycardia. He could be sent on hydralazine due to the fact that it is the 3 times daily medication he may not be compliant with it. He could be started on hydrochlorothiazide or chlorthalidone at a later date once his JENNIFER has resolved. Follow up with PCP and nephrology as outpatient. (2) JENNIFER (acute kidney injury) Is this a current diagnosis for this admission?: Yes Plan: Most likely due to rebound hypertension caused by clonidine nonadherence. Creatinine 2.88 on admission, 1.6 today. Making adequate urine. Renal ultrasound negative for any acute abnormalities. Cautious diuresis guided by volume status and renal function. Patient advised on medication adherence. Avoid nephrotoxic meds. Outpatient nephrology follow-up. (3) ADD (attention deficit disorder) Is this a current diagnosis for this admission?: Yes Plan: Patient is on Atomoxetine 2 mg daily for his ADD. Current treatment. Outpatient PCP follow-up. (4) Suprapubic pain Is this a current diagnosis for this admission?: Yes Plan: Improving. P.o. tolerant, having normal bowel and bladder movements. Abdominal ultrasound slightly echogenic right renal parenchyma and no hydronephrosis Renal ultrasound shows grossly normal sonogram evaluation of the kidneys and bladder Abdominal/pelvis CT shows no acute inflammatory process no renal or ureteral calculi (5) Asthma Qualifiers: Asthma severity: mild Is this a current diagnosis for this admission?: Yes Plan: Not acutely exacerbated. Complaining of congestion. Continue DuoNeb's, LABA, ICS. Outpatient pulmonology and PCP follow-up.
--- NOTE | 2018-11-24 11:28 | EKG REPORT ---
SEVERITY:- ABNORMAL ECG - SINUS RHYTHM PROBABLE LEFT VENTRICULAR HYPERTROPHY ST ELEV, PROBABLE NORMAL EARLY REPOL PATTERN : Confirmed by: Be Caceres 24-Nov-2018 11:27:01
[2018-11-24] MEDS: FLUTICASONE/VILANTEROL 100-25 MCG/DOSE IH SCH (12:14)
[2018-11-24] MEDS ORDERED: AMLODIPINE BESYLATE 5 MG TABLET PO SCH (15:30)
[2018-11-24] MEDS: IPRATROPIUM/ALBUTEROL 0.5-2.5 MG/3 ML AMPUL NEB SCH (15:52)
[2018-11-25] MEDS: IPRATROPIUM/ALBUTEROL 0.5-2.5 MG/3 ML AMPUL NEB SCH ×3 (00:28→15:38)
[2018-11-25] MEDS: NORMAL SALINE 1000 ML 1,000 ML IV PRN ×2 (04:25→17:39)
[2018-11-25] MEDS: HEPARIN SOD (PORCINE) 5,000 UNIT/ML 1 ML VIAL SUBCUT SCH ×3 (05:09→21:52)
[2018-11-25 07:26] LABS: ANION GAP 10 (5-19); BLOOD UREA NITROGEN 4 mg/dL (7-20); CALCIUM 9.2 mg/dL (8.4-10.2); CARBON DIOXIDE 30 mmol/L (22-30); CHLORIDE 103 mmol/L (98-107); GLUCOSE 101 mg/dL (75-110); POTASSIUM 3.7 mmol/L (3.6-5.0)
[2018-11-25] MEDS: DOCUSATE SODIUM 100 MG CAPSULE PO SCH (09:31)
[2018-11-25] MEDS: FAMOTIDINE 20 MG TABLET PO SCH ×2 (09:31→21:52)
[2018-11-25] MEDS: FLUTICASONE/VILANTEROL 100-25 MCG/DOSE IH SCH (09:36)
[2018-11-25] MEDS ORDERED: AMLODIPINE BESYLATE 5 MG TABLET PO SCH (10:00)
[2018-11-25 16:48] LABS: ANION GAP 13 (5-19); BLOOD UREA NITROGEN 6 mg/dL (7-20); CALCIUM 9.7 mg/dL (8.4-10.2); CARBON DIOXIDE 28 mmol/L (22-30); CHLORIDE 102 mmol/L (98-107); GLUCOSE 108 mg/dL (75-110); POTASSIUM 3.6 mmol/L (3.6-5.0)
--- NOTE | 2018-11-25 17:15 | PDOC PROGRESS REPORT ---
Subjective Progress Note for:: 11/25/18 Subjective:: 11/23/2018. No acute events overnight. Pain is improving, patient is p.o. tolerant, having normal bowel and bladder movements, denies any nausea, vomiting, diarrhea, constipation or any urinary symptoms. 11/24/2018. No acute events overnight. Suprapubic abdominal pain improving, having normal bowel and bladder movement, p.o. tolerant however complaining of low appetite, denies any nausea, vomiting, diarrhea, constipation or any urinary symptoms. Kidney function improving, electrolytes WNL. BP not optimized. 11/25/2018. No acute events overnight. Abdominal pain is improved, still reporting low appetite, p.o. tolerant, ambulatory, having normal bladder bowel movement. Kidney function improving, BP not optimized. Possible DC home tomorrow. Reason For Visit: ABDOMINAL PAIN, LOW BACK PAIN Physical Exam Vital Signs: Temp Pulse Resp BP Pulse Ox 97.3 F 51 L 19 143/76 H 100 11/25/18 15:06 11/25/18 15:06 11/25/18 15:06 11/25/18 15:06 11/25/18 15:06 Intake & Output 11/24/18 11/25/18 11/26/18 06:59 06:59 06:59 Intake Total 3450 3737 480 Output Total 1635 4922 1000 Balance 1815 -1185 -520 Weight 77.9 kg 75.2 kg General appearance: PRESENT: no acute distress, well-developed, well-nourished Head exam: PRESENT: atraumatic, normocephalic Eye exam: PRESENT: conjunctiva pink, EOMI, PERRLA. ABSENT: scleral icterus Ear exam: PRESENT: normal external ear exam Mouth exam: PRESENT: moist, tongue midline Neck exam: ABSENT: carotid bruit, JVD, lymphadenopathy, thyromegaly Respiratory exam: PRESENT: clear to auscultation parag. ABSENT: rales, rhonchi, wheezes Cardiovascular exam: PRESENT: RRR. ABSENT: diastolic murmur, rubs, systolic murmur Pulses: PRESENT: normal dorsalis pedis pul Vascular exam: PRESENT: normal capillary refill GI/Abdominal exam: PRESENT: normal bowel sounds, soft. ABSENT: distended, guarding, mass, organolmegaly, rebound, tenderness Rectal exam: PRESENT: deferred Extremities exam: PRESENT: full ROM. ABSENT: calf tenderness, clubbing, pedal edema Neurological exam: PRESENT: alert, awake, oriented to person, oriented to place, oriented to time, oriented to situation, CN II-XII grossly intact. ABSENT: motor sensory deficit Psychiatric exam: PRESENT: appropriate affect, normal mood. ABSENT: homicidal ideation, suicidal ideation Skin exam: PRESENT: dry, intact, warm. ABSENT: cyanosis, rash Results Laboratory Results: 11/22/18 04:18 11/25/18 16:00 11/25/18 11/25/18 06:38 16:00 Sodium 142.5 143.4 Potassium 3.7 3.6 Chloride 103 102 Carbon Dioxide 30 28 Anion Gap 10 13 BUN 4 L 6 L Creatinine 1.43 H 1.38 H Est GFR ( Amer) > 60 > 60 Glucose 101 108 Calcium 9.2 9.7 11/21/18 11/21/18 00:00 11:58 Creatine Kinase 94 91 Impressions: Chest X-Ray 11/20/18 20:56 IMPRESSION: Negative chest copyright 2011 [employer]- All Rights Reserved Abdomen Ultrasound 11/21/18 01:33 IMPRESSION: 1. Bile duct is at the upper limits of normal in size. However, the gallbladder is normal. 2. Slightly echogenic right renal parenchyma. This is a nonspecific finding that can be seen with medical renal disease. No hydronephrosis. Renal Ultrasound 11/21/18 04:08 IMPRESSION: Grossly normal sonographic evaluation of the kidneys and bladder. Abdomen/Pelvis CT 11/21/18 04:42 IMPRESSION: No acute inflammatory process. No renal or ureteral calculi. KUB X-Ray 11/22/18 00:00 IMPRESSION: Nonobstructive bowel gas pattern with a mild colonic stool burden. Assessment and Plan - Diagnosis (1) Hypertensive emergency Is this a current diagnosis for this admission?: Yes Plan: Rebound hypertension likely caused by clonidine nonadherence. Patient is on clonidine and Norvasc for hypertension but he admits to taking them intermittently only. Presented to ED with systolic blood pressure of 160s, and creatinine of 2.55 up from his baseline of 1.02. SBP [id number]. Creatinine 1.3 EKG positive for left ventricular hypertrophy. Continue monitoring, increase Norvasc to 10 mg p.o. daily. Not a good candidate for clonidine due to nonadherence and risk of rebound hypertension. Not a a good candidate for beta-blockers for asymptomatic bradycardia. He could be sent on hydralazine due to the fact that it is the 3 times daily medication he may not be compliant with it. He could be started on hydrochlorothiazide or chlorthalidone at a later date once his JENNIFER has resolved. Follow up with PCP and nephrology as outpatient. (2) JENNIFER (acute kidney injury) Is this a current diagnosis for this admission?: Yes Plan: Significant improvement. Most likely due to rebound hypertension caused by clonidine nonadherence. Creatinine 2.88 on admission, 1.3 today. Making adequate urine. Renal ultrasound negative for any acute abnormalities. Cautious diuresis guided by volume status and renal function. Patient advised on medication adherence. Avoid nephrotoxic meds. Outpatient nephrology follow-up. (3) ADD (attention deficit disorder) Is this a current diagnosis for this admission?: Yes Plan: Patient is on Atomoxetine 2 mg daily for his ADD. Current treatment. Outpatient PCP follow-up. (4) Suprapubic pain Is this a current diagnosis for this admission?: Yes Plan: Improving. P.o. tolerant, having normal bowel and bladder movements. Abdominal ultrasound slightly echogenic right renal parenchyma and no hydronephrosis Renal ultrasound shows grossly normal sonogram evaluation of the kidneys and bladder Abdominal/pelvis CT shows no acute inflammatory process no renal or ureteral calculi (5) Asthma Qualifiers: Asthma severity: mild Is this a current diagnosis for this admission?: Yes Plan: Not acutely exacerbated. Saturating WNL on RA. Continue DuoNeb's, LABA, ICS. Outpatient pulmonology and PCP follow-up.
[2018-11-26] MEDS: IPRATROPIUM/ALBUTEROL 0.5-2.5 MG/3 ML AMPUL NEB SCH ×3 (00:02→15:40)
[2018-11-26] MEDS: HEPARIN SOD (PORCINE) 5,000 UNIT/ML 1 ML VIAL SUBCUT SCH ×2 (05:34→13:15)
[2018-11-26 06:08] LABS: ANION GAP 11 (5-19); BLOOD UREA NITROGEN 7 mg/dL (7-20); CALCIUM 8.9 mg/dL (8.4-10.2); CARBON DIOXIDE 28 mmol/L (22-30); CHLORIDE 102 mmol/L (98-107); GLUCOSE 123 mg/dL (75-110); POTASSIUM 3.6 mmol/L (3.6-5.0)
[2018-11-26] MEDS: FAMOTIDINE 20 MG TABLET PO SCH (09:59)
[2018-11-26] MEDS: DOCUSATE SODIUM 100 MG CAPSULE PO SCH (09:59)
[2018-11-26] MEDS ORDERED: CLONIDINE HCL 0.2 MG TABLET PO SCH (10:00)
[2018-11-26] MEDS: NORMAL SALINE 1000 ML 1,000 ML IV PRN (10:00)
[2018-11-26] MEDS: FLUTICASONE/VILANTEROL 100-25 MCG/DOSE IH SCH (10:00)
[2018-11-26] MEDS ORDERED: CLONIDINE HCL 0.1 MG TABLET PO ONE (15:00)
[2018-11-26] MEDS ORDERED: AMLODIPINE BESYLATE 5 MG TABLET PO ONE (17:15)
[2018-11-26 17:54] LABS: URINE AMPHETAMINES SCREEN NEGATIVE; URINE BARBITURATES SCREEN NEGATIVE; URINE BENZODIAZEPINES SCREEN NEGATIVE; URINE COCAINE SCREEN NEGATIVE; URINE MARIJUANA (THC) SCREEN NEGATIVE; URINE METHADONE SCREEN NEGATIVE; URINE PHENCYCLIDINE SCREEN NEGATIVE
[2018-11-26 18:53] VITALS: BP 163/71
--- NOTE | 2018-12-02 11:23 | PDOC DISCHARGE SUMMARY ---
Impression - Admit/DC Date/PCP Admission Date/Primary Care Provider: 11/24/18 09:46 TARUN BARR Discharge Date: 11/26/18 - Discharge Diagnosis (1) Hypertensive emergency Is this a current diagnosis for this admission?: Yes (2) JENNIFER (acute kidney injury) Is this a current diagnosis for this admission?: Yes (3) ADD (attention deficit disorder) Is this a current diagnosis for this admission?: Yes (4) Suprapubic pain Is this a current diagnosis for this admission?: Yes (5) Asthma Is this a current diagnosis for this admission?: Yes - Additional Information Resuscitation Status: Full Code Discharge Diet: As Tolerated Discharge Activity: Activity As Tolerated Referrals: CLAUDIA ESPINOZA FNP-C [Primary Care Provider] - 12/01/18 9:00 am Prescriptions: Clonidine HCl [Catapres 0.3 mg Tablet] 0.3 mg PO DAILY 30 Days #30 tablet Amlodipine Besylate [Norvasc 5 mg Tablet] 5 mg PO DAILY 30 Days #30 tablet Home Medications: Atomoxetine HCl 80 mg PO DAILY 11/21/18 Amlodipine Besylate [Norvasc 5 mg Tablet] 5 mg PO DAILY 30 Days #30 tablet 11/26/18 Clonidine HCl [Catapres 0.3 mg Tablet] 0.3 mg PO DAILY 30 Days #30 tablet 11/26/18 History of Present Illiness History of Present Illness: HPI per admitting physician. DONA BULL is a 23 year old black male who comes in with a 5-day history of lower abdominal pain and flank pain. Patient states on Thursday he started having some pain just below his umbilicus and in both of his sides or flanks. Patient states he took some Benadryl and clonidine to see if it would help. I asked him why he had clonidine and he said he had been prescribed it in the past for sleep.. I wonder if he means Klonopin. At any rate it did not seem to get any better he says that he has more abdominal pain when his bladder fills up or when he needs to void. No actual dysuria with voiding and he denies fever chills or sweats although he says he has had a cold recently. States that he is vomited once yesterday and vomited once a day before. Patient denies diarrhea. Patient also states that 2 weeks ago he went to his primary care provider for his prescription for Adderall and at that time she noticed his blood pressure was elevated he says that she did some blood work and started him on a blood pressure medicine Norvasc.. Patient states he is never been told he had hypertension in the past and never been on blood pressure medicine before.. Patient also denies any other comorbidities such as diabetes or heart disease or renal disease or HIV. Only other problem is ADD. The emergency room patient has had several studies and so far the only thing that has shown up abnormal is a creatinine of 2.55 with a normal BUN of 20 GFR of 39. This would calculate to a creatinine clearance of approximately 56. Patient will be admitted to the hospital for further work-up and possible nephrology consult. The last creatinine that I can find in the records is 2014 which was 1.02, certainly however the blood work from 2 weeks ago would be helpful Hospital Course Hospital Course: (1) Hypertensive emergency Rebound hypertension likely caused by clonidine nonadherence. Patient is on clonidine and Norvasc for hypertension but he admits to taking them intermittently only. Presented to ED with systolic blood pressure of 160s, and creatinine of 2.55 up from his baseline of 1.02. EKG positive for left ventricular hypertrophy. Not a good candidate for clonidine due to nonadherence and risk of rebound hypertension, but unfortunately could not switch to other meds as renal function not back to baseline. Not a a good candidate for beta-blockers for asymptomatic bradycardia. He could be sent on hydralazine but due to the fact that it is the 3 times daily medication he may not be compliant with it. He could be started on hydrochlorothiazide or chlorthalidone at a later date once his JENNIFER has resolved. Pt was advised on medication adherence and an appointment was made for him to see his pcp and check renal function again and hopefully can be taken off of clonidine. Was discharged on clonidine and norvasc. (2) JENNIFER (acute kidney injury) Significant improvement. Most likely due to rebound hypertension caused by clonidine nonadherence. Creatinine 2.88 on admission, 1.29 on the day of discharge. Making adequate urine. Renal ultrasound negative for any acute abnormalities. Was started on cautious diuresis guided by volume status and renal function. Patient advised on medication adherence. Advised on avoiding nephrotoxic meds. Outpatient nephrology follow-up. (3) ADD (attention deficit disorder) Patient is on Atomoxetine 2 mg daily for his ADD. Restarted home meds. Outpatient PCP follow-up. (4) Suprapubic pain Resovled. P.o. tolerant, having normal bowel and bladder movements. Abdominal ultrasound slightly echogenic right renal parenchyma and no hydronephrosis Renal ultrasound shows grossly normal sonogram evaluation of the kidneys and bladder Abdominal/pelvis CT shows no acute inflammatory process no renal or ureteral calculi (5) Asthma Not acutely exacerbated. Saturating WNL on RA. Started on continue DuoNeb's PRN and LABA, ICS Outpatient pulmonology and PCP follow-up recommended. Physical Exam Vital Signs: Temp Pulse Resp BP Pulse Ox 98.2 F 91 14 163/71 H 100 11/26/18 18:52 11/26/18 18:52 11/26/18 18:52 11/26/18 18:52 11/26/18 18:52 Results Laboratory Results: WBC 6.9 10^3/uL (4.0-10.5) 11/22/18 04:18 RBC 5.81 10^6/uL (4.35-5.55) H 11/22/18 04:18 Hgb 15.0 g/dL (13.5-17.0) 11/22/18 04:18 Hct 43.8 % (37.9-51.0) 11/22/18 04:18 MCV 76 fl (80-97) L 11/22/18 04:18 MCH 25.9 pg (27.0-33.4) L 11/22/18 04:18 MCHC 34.3 g/dL (32.0-36.0) 11/22/18 04:18 RDW 13.0 % (11.5-14.0) 11/22/18 04:18 Plt Count 180 10^3/uL (150-450) 11/22/18 04:18 Lymph % (Auto) 20.0 % (13-45) 11/22/18 04:18 [place] % (Auto) 10.5 % (3-13) 11/22/18 04:18 Eos % (Auto) 2.2 % (0-6) 11/22/18 04:18 Baso % (Auto) 0.4 % (0-2) 11/22/18 04:18 Absolute Neuts (auto) 4.6 10^3/uL (1.7-8.2) 11/22/18 04:18 Absolute Lymphs (auto) 1.4 10^3/uL (0.5-4.7) 11/22/18 04:18 Absolute Monos (auto) 0.7 10^3/uL (0.1-1.4) 11/22/18 04:18 Absolute Eos (auto) 0.1 10^3/uL (0.0-0.6) 11/22/18 04:18 Absolute Basos (auto) 0.0 10^3/uL (0.0-0.2) 11/22/18 04:18 Seg Neutrophils % 66.9 % (42-78) 11/22/18 04:18 Sodium 141.0 mmol/L (137-145) 11/26/18 05:18 Potassium 3.6 mmol/L (3.6-5.0) 11/26/18 05:18 Chloride 102 mmol/L (98-107) 11/26/18 05:18 Carbon Dioxide 28 mmol/L (22-30) 11/26/18 05:18 Anion Gap 11 (5-19) 11/26/18 05:18 BUN 7 mg/dL (7-20) 11/26/18 05:18 Creatinine 1.27 mg/dL (0.52-1.25) H 11/26/18 05:18 Est GFR ( Amer) > 60 (>60) 11/26/18 05:18 Est GFR (MDRD) Non-Af > 60 (>60) 11/26/18 05:18 Glucose 123 mg/dL (75-110) H 11/26/18 05:18 Calcium 8.9 mg/dL (8.4-10.2) 11/26/18 05:18 Phosphorus 4.2 mg/dL (2.5-4.5) 11/22/18 04:18 Magnesium 2.1 mg/dL (1.6-2.3) 11/23/18 09:57 Total Bilirubin 0.6 mg/dL (0.2-1.3) 11/24/18 06:36 Direct Bilirubin 0.2 mg/dL (0.0-0.4) 11/24/18 06:36 Neonat Total Bilirubin Not Reportable 11/24/18 06:36 Neonat Direct Bilirubin Not Reportable 11/24/18 06:36 Neonat Indirect Bili Not Reportable 11/24/18 06:36 AST 14 U/L (17-59) L 11/24/18 06:36 ALT 13 U/L (<50) 11/24/18 06:36 Alkaline Phosphatase 55 U/L (38-126) 11/24/18 06:36 Creatine Kinase 91 U/L (55-170) 11/21/18 11:58 Total Protein 6.6 g/dL (6.3-8.2) 11/24/18 06:36 Albumin 3.7 g/dL (3.5-5.0) 11/24/18 06:36 Amylase 68 U/L (30-110) 11/21/18 11:58 Lipase 90.4 U/L (23-300) 11/21/18 11:58 TSH 1.46 uIU/mL (0.47-4.68) 11/23/18 09:57 Urine Color YELLOW 11/20/18 20:58 Urine Appearance CLEAR 11/20/18 20:58 Urine pH 6.0 (5.0-9.0) 11/20/18 20:58 Ur Specific [place] 1.009 11/20/18 20:58 Urine Protein 30 mg/dL (NEGATIVE) H 11/20/18 20:58 Urine Glucose (UA) NEGATIVE mg/dL (NEGATIVE) 11/20/18 20:58 Urine Ketones 20 mg/dL (NEGATIVE) H 11/20/18 20:58 Urine Blood SMALL (NEGATIVE) H 11/20/18 20:58 Urine Nitrite NEGATIVE (NEGATIVE) 11/20/18 20:58 Urine Bilirubin NEGATIVE (NEGATIVE) 11/20/18 20:58 Urine Urobilinogen 2.0 mg/dL (<2.0) H 11/20/18 20:58 Ur Leukocyte Esterase NEGATIVE (NEGATIVE) 11/20/18 20:58 Urine WBC (Auto) 1 /HPF 11/20/18 20:58 Urine RBC (Auto) 0 /HPF 11/20/18 20:58 Squamous Epi Cells Auto <1 /HPF 11/20/18 20:58 Urine Mucus (Auto) RARE /LPF 11/20/18 20:58 Urine Ascorbic Acid NEGATIVE (NEGATIVE) 11/20/18 20:58 Urine Opiates Screen NEGATIVE 11/26/18 17:20 Urine Methadone Screen NEGATIVE 11/26/18 17:20 Ur Barbiturates Screen NEGATIVE 11/26/18 17:20 Ur Phencyclidine Scrn NEGATIVE 11/26/18 17:20 Ur Amphetamines Screen NEGATIVE 11/26/18 17:20 U Benzodiazepines Scrn NEGATIVE 11/26/18 17:20 Urine Cocaine Screen NEGATIVE 11/26/18 17:20 U Marijuana (THC) Screen NEGATIVE 11/26/18 17:20 Chlamydia DNA (PCR) NOT DETECTED (NOT DETECT) 11/21/18 01:39 N.gonorrhoeae DNA (PCR) NOT DETECTED (NOT DETECT) 11/21/18 01:39 Group A Strep Rapid NEGATIVE (NEGATIVE) 11/20/18 20:58 Impressions: Chest X-Ray 11/20/18 20:56 IMPRESSION: Negative chest copyright 2011 [employer]- All Rights Reserved Abdomen Ultrasound 11/21/18 01:33 IMPRESSION: 1. Bile duct is at the upper limits of normal in size. However, the gallbladder is normal. 2. Slightly echogenic right renal parenchyma. This is a nonspecific finding that can be seen with medical renal disease. No hydronephrosis. Renal Ultrasound 11/21/18 04:08 IMPRESSION: Grossly normal sonographic evaluation of the kidneys and bladder. Abdomen/Pelvis CT 11/21/18 04:42 IMPRESSION: No acute inflammatory process. No renal or ureteral calculi. KUB X-Ray 11/22/18 00:00 IMPRESSION: Nonobstructive bowel gas pattern with a mild colonic stool burden. Stroke Is this a Stroke Patient?: No Acute Heart Failure - Is this a Heart Failure Patient?: No
== END 2018-11-26 19:37 | disposition home or self-care (01) | DRG 305 ==
LOC: ER 20:25 → INTOOBSV 11-21 08:02 → EH 11-21 08:02 → 5 11-21 09:18 → OBSVTOIN 11-24 09:46
PROVIDERS: ADMIT Family Medicine; ATTEND Family Medicine
DX: I16.1 Hypertensive emergency (principal); N17.9 Acute kidney failure, unspecified; I11.9 Hypertensive heart disease without heart failure; F98.8 Other specified behavioral and emotional disorders with onset usually occurring in childhood and adolescence; J45.909 Unspecified asthma, uncomplicated; R10.30 Lower abdominal pain, unspecified; M54.5 Low back pain; R11.2 Nausea with vomiting, unspecified; Z91.14 Patient's other noncompliance with medication regimen; Z91.018 Allergy to other foods
CPT/HCPCS: 36415; 71046; 74018; 74176; 76705; 76770; 80048; 80053; 80307; 81001; 82150; 82550; 83690; 83735; 84100; 84443; 85025; 87070; 87491; 87591; 87880; 93005; 93010; 94640; 96361; 96374; 99285; G0378; J1644; J2405; J3490; J7030; J7620

== ENCOUNTER 2019-03-13 14:56 | Emergency (ER) | payer SELFPAY ==
[2019-03-13] MEDS ORDERED: ONDANSETRON 4 MG TAB.RAPDIS PO ONE (15:43)
--- NOTE | 2019-03-13 15:48 | ER Document Report ---
ED Medical Screen (RME) - General Chief Complaint: Cold Symptoms Stated Complaint: DIFFICULTY BREATHING/COUGH Time Seen by Provider: 03/13/19 15:38 Primary Care Provider: CLAUDIA ESPINOZA FNP-C [Primary Care Provider] - Follow up as needed Mode of Arrival: Ambulatory Information source: Patient Notes: This 23-year-old male with history of asthma presents to the emergency department with complaints that he has been nausea vomiting for the past 6 days. Reports he has a cough has a history of asthma has been using his inhaler and neb treatments without relief of symptoms. Reports he has been able to drink p.o. fluids today but still feels nauseous. I have greeted and performed a rapid initial assessment of this patient. A comprehensive ED assessment and evaluation of the patient, analysis of test results and completion of the medical decision making process will be conducted by additional ED providers. TRAVEL OUTSIDE OF THE [place] IN LAST 30 DAYS: No - Related Data Allergies/Adverse Reactions: Fruit Extracts [From Fruit & Vegetable Daily] Allergy (Severe, Verified 03/13/19 15:38) Lutein Extract [From Fruit & Vegetable Daily] Allergy (Severe, Verified 03/13/19 15:38) lycopene [From Fruit & Vegetable Daily] Allergy (Severe, Verified 03/13/19 15:38) seafood Allergy (Uncoded 03/13/19 15:38) Past Medical History - Social History Chew tobacco use (# tins/day): No Frequency of alcohol use: None Drug Abuse: None - Past Medical History Cardiac Medical History: Reports: Hx Hypertension Pulmonary Medical History: Reports: Hx Asthma Psychiatric Medical History: Reports: Hx Attention Deficit Hyperactivity Disorder - Immunizations Immunizations up to date: Yes Physical Exam - Vital signs Vitals: Temp Pulse Resp BP Pulse Ox 98.6 F 57 L 16 135/67 H 98 03/13/19 15:27 03/13/19 15:27 03/13/19 15:27 03/13/19 15:27 03/13/19 15:27 Course - Vital Signs Vital signs: Temp Pulse Resp BP Pulse Ox 98.6 F 57 L 16 135/67 H 98 03/13/19 15:27 03/13/19 15:27 03/13/19 15:27 03/13/19 15:27 03/13/19 15:27 - Laboratory Result Diagrams: 03/13/19 16:05 03/13/19 16:05 Laboratory results interpreted by me: 03/13/19 03/13/19 03/13/19 16:05 16:05 16:05 WBC 11.2 H RBC 5.62 H MCV 76 L MCH 26.0 L Potassium 3.4 L Chloride 95 L Carbon Dioxide 31 H Urine Protein 100 H Urine Bilirubin SMALL H Urine Urobilinogen 4.0 H Urine Ascorbic Acid 40 H Doctor's Discharge - Discharge Referrals: CLAUDIA ESPINOZA, ELECTRONIC SYSTEMS TECHNICIAN-C [Primary Care Provider] - Follow up as needed
[2019-03-13 16:24] LABS: ABSOLUTE MONOCYTES (AUTO) 1.1 10^3/uL (0.1-1.4); TOTAL CELLS COUNTED % (AUTO) 100 %
[2019-03-13 16:30] LABS: ABSOLUTE EOSINOPHILS # (AUTO) 0.2 10^3/uL (0.0-0.6); ABSOLUTE LYMPHOCYTES (AUTO) 2.2 10^3/uL (0.5-4.7); ABSOLUTE NEUT (AUTO) 7.6 10^3/uL (1.7-8.2); BASOPHILS % (AUTO) 0.2 % (0-2); EOSINOPHILS % (AUTO) 1.4 % (0-6); HEMATOCRIT 42.6 % (37.9-51.0); HEMOGLOBIN 14.6 g/dL (13.5-17.0); LYMPHOCYTES % (AUTO) 19.8 % (13-45); MEAN CORPUSCULAR HGB CONC 34.3 g/dL (32.0-36.0); MEAN CORPUSCULAR VOLUME 76 fl (80-97); MONOCYTES % (AUTO) 10.1 % (3-13); PLATELET COUNT 212 10^3/uL (150-450); RED BLOOD COUNT 5.62 10^6/uL (4.35-5.55); RED CELL DISTRIBUTION WIDTH 12.7 % (11.5-14.0); SEGMENTED NEUTROPHILS % (AUTO) 68.5 % (42-78); WHITE BLOOD COUNT 11.2 10^3/uL (4.0-10.5)
[2019-03-13 16:33] LABS: APPEARANCE,URINE SLIGHTLY-CLOUDY; BILIRUBIN,URINE SMALL (NEGATIVE); COLOR,URINE AMBER; GLUCOSE, URINE NEGATIVE (NEGATIVE); KETONES,URINE NEGATIVE (NEGATIVE); LEUKOCYTE ESTERASE,URINE NEGATIVE (NEGATIVE); NITRITE,URINE NEGATIVE (NEGATIVE); PROTEIN,URINE 100 mg/dL (NEGATIVE); URINE SPECIFIC GRAVITY 1.031
[2019-03-13 16:40] LABS: A TYPE INFLUENZA AG NEGATIVE (NEGATIVE); ALBUMIN 4.5 g/dL (3.5-5.0); ALKALINE PHOSPHATASE 70 U/L (38-126); ANION GAP 14 (5-19); ASPARTATE AMINO TRANSFERASE 23 U/L (17-59); B INFLUENZA AG NEGATIVE (NEGATIVE); BILIRUBIN,DIRECT 0.3 mg/dL (0.0-0.4); BILIRUBIN,TOTAL 0.7 mg/dL (0.2-1.3); BLOOD UREA NITROGEN 9 mg/dL (7-20); CALCIUM 9.6 mg/dL (8.4-10.2); CARBON DIOXIDE 31 mmol/L (22-30); CHLORIDE 95 mmol/L (98-107); GLUCOSE 92 mg/dL (75-110); POTASSIUM 3.4 mmol/L (3.6-5.0); TOTAL PROTEIN 8.2 g/dL (6.3-8.2)
--- NOTE | 2019-03-13 16:41 | RADIOLOGY REPORT (SQ) ---
EXAM DESCRIPTION: CHEST 2 VIEWS COMPLETED DATE/TIME: 03/13/2019 3:23 pm REASON FOR STUDY: cough COMPARISON: 10/25/2014 EXAM PARAMETERS: NUMBER OF VIEWS: two views TECHNIQUE: Digital Frontal and Lateral radiographic views of the chest acquired. RADIATION DOSE: NA LIMITATIONS: none FINDINGS: LUNGS AND PLEURA: No opacities, masses or pneumothorax. No pleural effusion. MEDIASTINUM AND HILAR STRUCTURES: No masses or contour abnormalities. HEART AND VASCULAR STRUCTURES: Heart normal size. No evidence for failure. BONES: No acute findings. HARDWARE: None in the chest. OTHER: No other significant finding. IMPRESSION: NO ACUTE RADIOGRAPHIC FINDING IN THE CHEST. TECHNICAL DOCUMENTATION: JOB ID: [id number] [employer]- All Rights Reserved Reading location - IP/workstation name: [email or web address]
[2019-03-13] MEDS ORDERED: BENZONATATE 100 MG CAPSULE PO ONE (17:50)
[2019-03-13] MEDS ORDERED: GUAIFENESIN/D-METHORPHAN (200-20 MG) SYRUP 10 ML PO ONE (17:51)
--- NOTE | 2019-03-13 17:58 | ER Document Report ---
ED General - General Chief Complaint: Cold Symptoms Stated Complaint: DIFFICULTY BREATHING/COUGH Time Seen by Provider: 03/13/19 15:38 Primary Care Provider: CLAUDIA ESPINOZA FNP-C [Primary Care Provider] - Follow up as needed Mode of Arrival: Ambulatory Information source: Patient TRAVEL OUTSIDE OF THE [place] IN LAST 30 DAYS: No - HPI Onset: Other - 1 week ago Onset/Duration: Gradual - over the last week Quality of pain: No pain Severity: Moderate Pain Level: Denies Exacerbated by: Denies Relieved by: Denies Similar symptoms previously: No Recently seen / treated by doctor: No Notes: 23 year old male with no significant PMH here for 1 week of cough, congestion, sore throat, ear pains, nausea. The patient says several people around him have had similar symptoms. The patient has not taken his temperature. The patient has used some over the counter medications without much improvement. - Related Data Allergies/Adverse Reactions: Fruit Extracts [From Fruit & Vegetable Daily] Allergy (Severe, Verified 03/13/19 15:38) Lutein Extract [From Fruit & Vegetable Daily] Allergy (Severe, Verified 03/13/19 15:38) lycopene [From Fruit & Vegetable Daily] Allergy (Severe, Verified 03/13/19 15:38) seafood Allergy (Uncoded 03/13/19 15:38) Past Medical History - General Information source: Patient - Social History Smoking Status: Never Smoker Chew tobacco use (# tins/day): No Frequency of alcohol use: None Drug Abuse: None Family History: Reviewed & Not Pertinent Patient has suicidal ideation: No Patient has homicidal ideation: No - Past Medical History Cardiac Medical History: Reports: Hx Hypertension Pulmonary Medical History: Reports: Hx Asthma Psychiatric Medical History: Reports: Hx Attention Deficit Hyperactivity Disorder - Immunizations Immunizations up to date: Yes Review of Systems - Review of Systems EENT: Ear pain, Nose congestion, Throat pain Cardiovascular: No symptoms reported Respiratory: Cough Gastrointestinal: Nausea Genitourinary: No symptoms reported Male Genitourinary: No symptoms reported Musculoskeletal: No symptoms reported Skin: No symptoms reported Hematologic/Lymphatic: No symptoms reported Neurological/Psychological: No symptoms reported Physical Exam - Vital signs Vitals: Temp Pulse Resp BP Pulse Ox 98.6 F 57 L 16 135/67 H 98 03/13/19 15:27 03/13/19 15:27 03/13/19 15:27 03/13/19 15:27 03/13/19 15:27 - Notes Notes: GENERAL: Well-appearing, well-nourished and in no acute distress. HEAD: Atraumatic, normocephalic. EYES: Pupils equal round and reactive to light, extraocular movements intact, sclera anicteric, conjunctiva are normal. ENT: Mild erythema of both TMs without bulging, nares patent, oropharynx with mild erythema but without swelling or exudates. Moist mucous membranes. NECK: Normal range of motion, supple without lymphadenopathy or JVD. LUNGS: Breath sounds clear to auscultation bilaterally and equal. No wheezes rales or rhonchi. HEART: Regular rate and rhythm without murmurs, rubs or gallops. ABDOMEN: Soft, nontender, normoactive bowel sounds. No guarding, no rebound. No masses appreciated. EXTREMITIES: Normal range of motion, no pitting or edema. No clubbing or cyanosis. NEUROLOGICAL: Cranial nerves II through XII grossly intact. Normal speech, normal gait. PSYCH: Normal mood, normal affect. SKIN: Warm, Dry, normal turgor, no rashes or lesions noted. Course - Re-evaluation Re-evalutation: 03/13/19 17:58 The patient is here for URI like symptoms for the last week. He had lab work, Flu swab, and Chest Xray ordered in triage before I saw the patient. The patient has unremarkable labs, is negative for the Flu, and he has a clear chest xray. Will treat patient's symptoms with Zofran and Tessalon Perles and will presribed Amoxicillin using the wait and see approach if symptoms persist. - Vital Signs Vital signs: Temp Pulse Resp BP Pulse Ox 98.6 F 57 L 16 135/67 H 98 03/13/19 15:27 03/13/19 15:27 03/13/19 15:27 03/13/19 15:27 03/13/19 15:27 - Laboratory Result Diagrams: 03/13/19 16:05 03/13/19 16:05 Laboratory results interpreted by me: 03/13/19 03/13/19 03/13/19 16:05 16:05 16:05 WBC 11.2 H RBC 5.62 H MCV 76 L MCH 26.0 L Potassium 3.4 L Chloride 95 L Carbon Dioxide 31 H Urine Protein 100 H Urine Bilirubin SMALL H Urine Urobilinogen 4.0 H Urine Ascorbic Acid 40 H - Diagnostic Test Radiology reviewed: Image reviewed, Reports reviewed Discharge - Discharge Clinical Impression: Upper respiratory infection Qualifiers: URI type: unspecified URI Qualified Code(s): J06.9 - Acute upper respiratory infection, unspecified Condition: Stable Disposition: HOME, SELF-CARE Instructions: Upper Respiratory Infection, or Child ([facility]), Viral Syndrome ([facility]) Additional Instructions: Use Zofran for nausea. Use Tessalon Perles for cough. Also use over the counter Robitussin DM for cough. If symptoms persist for longer then a week, take Amoxicillin (an antibiotic). Prescriptions: Benzonatate [Tessalon Perles 100 mg Capsule] 100 mg PO Q8HP PRN #20 capsule PRN Reason: Ondansetron [Zofran Odt 4 mg Tablet] 1 tab PO Q8HP PRN #10 tab.rapdis PRN Reason: For Nausea/Vomiting Amoxicillin 1 tab PO TID 7 Days #21 tab Referrals: CLAUDIA ESPINOZA, RN CLINICIAN-C [Primary Care Provider] - Follow up as needed
[2019-03-13 18:24] VITALS: BP 122/75
== END 2019-03-13 18:25 | disposition home or self-care (01) ==
LOC: ER 14:56
DX: J06.9 Acute upper respiratory infection, unspecified (principal); R06.00 Dyspnea, unspecified; I10 Essential (primary) hypertension; Z91.013 Allergy to seafood
CPT/HCPCS: 99283; 36415; 85025; 80053; 81001; 87804; 71046; S0119; J3490